=== PATIENT | female | born 1985 | race Caucasian/White ===

== ENCOUNTER 2017-02-03 10:50 | Emergency (ER) | payer MEDICAID ==
[~2017-02-03] VITALS: Ht 154.9 cm; Wt 123.9 kg
[2017-02-03] MEDS ORDERED: KETOROLAC 60MG/2ML VIAL IM ONE (17:00)
[2017-02-03 17:36] VITALS: BP 113/66
== END 2017-02-03 17:39 | disposition home or self-care (01) ==
LOC: ER 10:50
DX: M25.862 Other specified joint disorders, left knee (principal)
CPT/HCPCS: 96372; 99283; J1885; Z7610